=== PATIENT | female | born 1995 | race Caucasian/White ===

== ENCOUNTER 2020-11-16 18:05 | Inpatient (IN) | payer MEDICARE ==
[~2020-11-16] VITALS: Ht 160 cm; Wt 108.9 kg
[2020-11-16] MEDS ORDERED: IV NS 0.9% 1,000 ML BAG IV ONE (18:30)
[2020-11-16 18:31] LABS: BASOPHILS % (AUTO) 0.5 % (0.0-2.0); EOSINOPHILS % (AUTO) 1.1 % (0.0-6.0); HEMATOCRIT 47 % (33-45); HEMOGLOBIN 15.3 g/dL (11.5-14.8); LYMPHOCYTES # (AUTO) 2.3 /CMM (0.8-4.8); LYMPHOCYTES % (AUTO) 26.4 % (20.0-44.0); MEAN CORPUSCULAR HGB CONC 33 g/dl (31.0-36.0); MEAN CORPUSCULAR VOLUME 96 fL (82-100); MONOCYTES # (AUTO) 0.6 /CMM (0.1-1.30); MONOCYTES % (AUTO) 6.7 % (2.0-12.0); NEUTROPHILS # (AUTO) 5.8 /CMM (1.8-8.9); NEUTROPHILS % (AUTO) 65.3 % (43.0-81.0); PLATELET COUNT (AUTO) 444 /CMM (150-450); RED BLOOD CELL COUNT(AUTO) 4.87 MIL/uL (4.0-5.2); WHITE BLOOD COUNT (AUTO) 8.8 K/uL (4.3-11.0)
[2020-11-16 18:34] LABS: BILIRUBIN,URINE Negative (NEGATIVE); COLOR,URINE YELLOW (YELLOW); LEUKOCYTE ESTERASE ,URINE Negative (NEGATIVE); NITRITE, URINE Negative (NEGATIVE); PROTEIN,URINE Negative (NEGATIVE); UGLUCOSE >=1000 mg/dL (NEGATIVE); UROBILINOGEN,URINE 0.2 EU/dL (0.2)
[2020-11-16 18:40] LABS: BACTERIA,URINE Rare /HPF (None Seen); RBC,URINE 0-2 /HPF (0-2); SQUAMOUS EPITHELIAL CELL,UR Few /HPF (None Seen); WBC,URINE 0-2 /HPF (0-3)
[2020-11-16 18:45] LABS: CALCIUM, SERUM 8.7 mg/dL (8.5-10.1); POTASSIUM 4.7 mmol/L (3.5-5.1)
--- NOTE | 2020-11-16 18:47 | NUR ---
BIBS WITH TO ER BED 7. AAOX4. NOT IN RESP DISTRESS. BREATHING EVEN AND UNLABORED. AMBULATORY. CAME IN FOR ELEVATED BS. PER PT, SHE RAN OUT OF INSULIN AND WILL BE REFILL TOMORROW. HER BS ON HER GLUCOMETER READS "HIGH". UPON ASSESSING PT, ACCUCHECK READ "HI" WHICH IS ABOVE 600. WAS AT THE BEDSIDE FOR EVAL. ORDERS RECEIVED, NOTED AND CARRIED OUT. OV LINE ESTBALISHED ON L AC 20G, BLOOD DRAWN AND SENT TO LAB. CAMILA COLLECTED AND SENT TO LAB
[2020-11-16] MEDS ORDERED: LEVO75CA2 PO (18:58)
[2020-11-16] MEDS ORDERED: INSU100V11 SQ (18:58)
[2020-11-16] MEDS ORDERED: ALBU8.5H8 IH (18:58)
[2020-11-16] MEDS ORDERED: LAMO25TA10 PO (18:58)
[2020-11-16] MEDS ORDERED: ERGO500014 PO (18:58)
[2020-11-16] MEDS ORDERED: PANT40TA49 PO (18:58)
[2020-11-16] MEDS ORDERED: SERT-438 PO (18:58)
[2020-11-16] MEDS ORDERED: INSULIN REGULAR, HUMAN 100 UNIT in IV NS 0.9% 99 ML IV PRN (19:30)
[2020-11-16] MEDS ORDERED: IV PREMIX NS +20MEQ KCL 1,000 L IV PRN (19:30)
[2020-11-16] MEDS ORDERED: INSULIN REGULAR, HUMAN 100 UNIT/ML 10 ML VIAL ONE (20:23)
[2020-11-16] MEDS ORDERED: IV PREMIX NS +20MEQ KCL 1 L IV ONE (20:23)
[2020-11-16 20:27] LABS: CALCIUM, SERUM 8.3 mg/dL (8.5-10.1); PHOSPHORUS 3.4 mg/dL (2.5-4.9); POTASSIUM 4.4 mmol/L (3.5-5.1)
[2020-11-16 20:52] LABS: ABG BASE EXCESS -8.2 mmol/L; ABG OXYGEN SATURATION 95.8 % (92.0-98.5); ABG PCO2 32.6 mmHg (35.0-45.0); ABG PH 7.324 (7.350-7.450); ABG PO2 86.9 mmHg (75.0-100.0); AaDO2 23.8 mmHg; COHb 2.2 % (0.5-1.5); MetHb 0.3 % (0.0-1.5); O2Hb 93.4 % (94.0-97.0); SITE, ABG Left Radial; VENT MODE, BG ROOM AIR 21%
--- NOTE | 2020-11-16 21:37 | NUR ---
PAGED FOR PANEL CALL, JUDY MARTE WILL CALL BACK.
--- NOTE | 2020-11-16 21:50 | NUR ---
DR. ONTIVEROS SPEAKING WITH JUDY MARET REGARDING ADMISSION
[2020-11-16 22:07] LABS: CALCIUM, SERUM 8.3 mg/dL (8.5-10.1); PHOSPHORUS 2.6 mg/dL (2.5-4.9); POTASSIUM 3.9 mmol/L (3.5-5.1)
--- NOTE | 2020-11-16 22:33 | NUR ---
bs 449
--- NOTE | 2020-11-16 23:42 | NUR ---
REPORT GIVEN TO NATHAN MOHAN FOR PATRICIA
[2020-11-17] VITALS (19 sets, daily range): BP systolic 90–143; BP diastolic 36–77
[2020-11-17] MEDS ORDERED: MAG HYDROX/AL HYDROX/SIMETH 30 ML UDC PO PRN
[2020-11-17] MEDS ORDERED: ACETAMINOPHEN 325 MG TABLET PO PRN
[2020-11-17] MEDS ORDERED: ONDANSETRON HCL/PF 4 MG/2 ML VIAL IVP PRN
[2020-11-17] MEDS ORDERED: MAGNESIUM HYDROXIDE 30 ML UDC PO PRN
[2020-11-17] MEDS ORDERED: ALBUTEROL FS 2.5 MG/3 ML VIAL.NEB NEB PRN
[2020-11-17] MEDS ORDERED: HYDROCODONE/APAP 5/325MG TABLET PO PRN
[2020-11-17] MEDS ORDERED: INSULIN REGULAR, HUMAN 100 UNIT in IV NS 0.9% 99 ML IV PRN (00:30)
[2020-11-17 00:35] LABS: CALCIUM, SERUM 8.5 mg/dL (8.5-10.1); CREATININE 0.7 mg/dL (0.6-1.3); MAGNESIUM 1.9 mg/dL (1.8-2.4); PHOSPHORUS 2.9 mg/dL (2.5-4.9); POTASSIUM 3.9 mmol/L (3.5-5.1)
--- NOTE | 2020-11-17 00:35 | NUR ---
PT TRANSFERRED PER ACLS PROTOCOL
--- NOTE | 2020-11-17 01:00 | NUR ---
FRONT END ENGINEER INITIAL BLOOD GLUCOSE LEVEL 246 TITRATED INSULIN DRIP TO 1 UNIT/HR PER DKA PROTOCOL ALGORITHM #1.
[2020-11-17] MEDS: BLOOD SUGAR DIAGNOSTIC 1 EACH STRIP IN SCH ×10 (01:01→10:14)
[2020-11-17] MEDS ORDERED: IV PREMIX D5 1/2NS + KCL 1,000 ML IV ONE (01:20)
[2020-11-17] MEDS ORDERED: Potassium Chloride 20 MEQ in IV D5/0.45 NACL 1,000 ML IV SCH (01:30)
[2020-11-17 04:46] LABS: CALCIUM, SERUM 8.3 mg/dL (8.5-10.1); CREATININE 0.6 mg/dL (0.6-1.3); POTASSIUM 4.1 mmol/L (3.5-5.1)
[2020-11-17 04:48] LABS: CHOLESTEROL 139 mg/dL (<200); HDL CHOLESTEROL 37 mg/dL (40-60); LDL 86 mg/dL (0-99); TRIGLYCERIDES 158 mg/dL (30-150)
--- NOTE | 2020-11-17 07:15 | NUR ---
RESEARCH AND EVALUATION MANAGER NOTES RECEIVED PATIENT IN BED RESTING COMFORTABLY IN MODERATE HIGH BACK REST. A/OX4, ON RA SATING 99%, ON CLAY TEMPERER WITH CURRENT READING OF SR WITH HR OF 80'S. IV ACCESS ON RAC#20 AND LAC#20 WITH D5 1/2 NS +20 MEQ KCL RUNNING @100 ML/HR AND INSULIN DRIP RUNNING @ 0.5 PER DKA PROTOCOL ALGORITHM #1. SAFETY MEASURES IN PLACE, BED IN LOWEST LOCKED POSITION WITH SIDE RAILS UP X2. CALL LIGHT WITHIN REACH, WILL CONTINUE TO MONITOR.
[2020-11-17] MEDS: LEVOTHYROXINE SODIUM 75 MCG TABLET PO SCH (08:12)
[2020-11-17] MEDS: PANTOPRAZOLE 40 MG TABLET.DR PO SCH (08:12)
[2020-11-17] MEDS: LamoTRIgine 25 MG TABLET PO SCH (08:12)
[2020-11-17] MEDS: SERTRALINE HCL 50 MG TABLET PO SCH (08:12)
[2020-11-17] MEDS ORDERED: ERGOCALCIFEROL (VITAMIN D 2) 50,000 UNIT CAPSULE PO SCH ×2 (09:00)
[2020-11-17 09:14] LABS: CALCIUM, SERUM 8.6 mg/dL (8.5-10.1); CREATININE 0.6 mg/dL (0.6-1.3); POTASSIUM 4.6 mmol/L (3.5-5.1)
[2020-11-17] MEDS ORDERED: Potassium Chloride 20 MEQ in IV D5/0.45 NACL 1,000 ML IV PRN (09:30)
--- NOTE | 2020-11-17 10:21 | NUR ---
RUG CUTTER NOTES DR. GEE NOTIFIED REGARDING LATEST MD JAMEY ORDER TO DC INSULIN DRIP, DC IV FLUIDS AND START ON MODERATE SLIDING SCALE ACHS. WILL CONTINUE TO MONITOR.
[2020-11-17] MEDS ORDERED: DEXTROSE 50%-WATER 50 ML DISP.SYRIN IV PRN (10:30)
[2020-11-17] MEDS ORDERED: *INSULIN REGULAR(HUMULIN R)HUM 100 UNIT/ML VIAL SQ PRN (10:30)
[2020-11-17] MEDS: BLOOD SUGAR DIAGNOSTIC 1 EACH STRIP VI SCH ×3 (11:09→22:52)
[2020-11-17] MEDS: INSULIN REGULAR, HUMAN 100 UNIT/ML 3 ML VIAL SQ PRN ×3 (11:11→23:11)
[2020-11-17 12:29] LABS: CALCIUM, SERUM 8.3 mg/dL (8.5-10.1); CREATININE 0.7 mg/dL (0.6-1.3); POTASSIUM 4.6 mmol/L (3.5-5.1)
--- NOTE | 2020-11-17 18:12 | NUR ---
CARDIOVASCULAR SURGEON NOTES TRANSFERRED PATIENT VIA WHEELCHAIR, VSS, NO SIGNS OF DISTRESS, REPORT GIVEN TO AMARILIS RN AT BEDSIDE, ALL BELONGINGS AND MEDICATION WITH PATIENT.
--- NOTE | 2020-11-17 18:14 | NUR ---
MS RN OPENING NOTES RECEIVED PATIENT VIA GURNEY, DOWNGRADE FROM ICU. PATIENT IS A/OX4, PATIENT IS BREATHING EVENLY AND NONLABORED ON RA SATING 99%, BP 116/86, RR18, HR 83 TEMP 98.4. IV ACCESS ON RAC#20 AND LAC#20 PATENT AND INTACT. PATIENT IS AMBULATORY AND SKIN INTACT. PATIENT WAS ORIENTED TO THE ROOM AND SHOWN HOW TO USE THE CALL LIGHT. BELONGINGS ACCOUNTED FOR. SAFETY MEASURES IN PLACE, BED IN LOWEST LOCKED POSITION WITH SIDE RAILS UP X2. CALL LIGHT WITHIN REACH, WILL CONTINUE TO MONITOR.
--- NOTE | 2020-11-17 19:47 | NUR ---
MS RN OPENING NOTE PATIENT A/OX4; ABLE TO MAKE NEEDS KNOWN. ON ROOM AIR TOLERATING WELL WITH NO SOB. DENIES PAIN OR DISCOMFORT AT THIS TIME. RAC #20G & LAC#20 PATENT AND INTACT. DENIES N/V/D. SAFETY MEASURES IN PLACE: BED IN LOWEST LOCKED POSITION, SIDE RAILS UPX1, CALL LIGHT WITHIN EASY REACH. PATIENT IN STABLE CONDITION; WILL CONTINUE PLAN OF CARE.
--- NOTE | 2020-11-17 19:58 | NUR ---
MS RN NOTE - BLOOD SUGAR 1ST GLUCOSE CHECK- 426 2ND GLUCOSE CHECK - 416 ORDERED RANDOM BLOOD SUGAR CHECK STAT. PATIENT DENIES N/V/D; C/O FEELING THIRSTY. PATIENT A/OX4 AND STABLE AT THIS TIME. CAR STOWER NURSE AWARE.
--- NOTE | 2020-11-17 22:50 | NUR ---
MS RN NOTE SURVEY CAD TECHNICIAN FRANDY BLOOD FOR RANDOM BLOOD SUGAR CHECK. AWAITING RESULTS.
--- NOTE | 2020-11-17 23:17 | NUR ---
MS RN NOTE - BLOOD SUGAR VIBHA (LAB) REPORTED RANDOM BLOOD SUGAR IS 455. ADMINISTERED INSULIN 15 UNITS ORDERED PER SLIDING SCALE. NOTIFIED MIO MARTE NP.
--- NOTE | 2020-11-17 23:54 | NUR ---
MS RN NOTE MIO MARTE NP AWARE OF BS OF 455. NO NEW ORDERS.
[2020-11-18] MEDS: INSULIN REGULAR, HUMAN 100 UNIT/ML 3 ML VIAL SQ PRN ×2 (06:07→12:09)
--- NOTE | 2020-11-18 06:13 | NUR ---
MS RN CLOSING NOTES PATIENT A/OX4; ABLE TO MAKE NEEDS KNOWN. ON ROOM AIR TOLERATING WELL WITH NO SOB. DENIES PAIN OR DISCOMFORT AT THIS TIME. RAC #20G S/L PATENT AND INTACT. DENIES N/V/D. CGM NOTED TO LLQ. SAFETY MEASURES IN PLACE: BED IN LOWEST LOCKED POSITION, SIDE RAILS UPX1, CALL LIGHT WITHIN EASY REACH. PATIENT IN STABLE CONDITION; WILL ENDORSE PLAN OF CARE TO ONCOMING MORNING RN.
[2020-11-18] MEDS: BLOOD SUGAR DIAGNOSTIC 1 EACH STRIP VI SCH ×2 (06:30→12:07)
[2020-11-18] MEDS: LEVOTHYROXINE SODIUM 75 MCG TABLET PO SCH (06:38)
[2020-11-18] MEDS: PANTOPRAZOLE 40 MG TABLET.DR PO SCH (06:38)
[2020-11-18 08:00] VITALS: BP 119/64
[2020-11-18] MEDS: LamoTRIgine 25 MG TABLET PO SCH (08:34)
[2020-11-18] MEDS: SERTRALINE HCL 50 MG TABLET PO SCH (08:34)
--- NOTE | 2020-11-18 12:05 | NUR ---
MS RN NOTE PATIENT BLOOD SUGAR IS 524. 15 UNITS OF INSULIN GIVEN, REPORTED TO DR. GEE, PER MD CONTINUE TO MONITOR.
--- NOTE | 2020-11-18 12:32 | NUR ---
MS RN OPENING NOTE PATIENT IS IN NO ACUTE DISTRESS, PATIENT IS IN BE RESTING. PATIENT IS ON ROOM AIR TOLERATING WELL, NO SOB NOTED. SAFETY PRECAUTIONS ARE ON. BED IS LOCKED IN THE LOWEST POSITION, WITH SIDE RAILS UP, CALL LIGHT WITHIN THE REACH, WILL CONTINUE TO MONITOR CLOSELY.
--- NOTE | 2020-11-18 13:02 | NUR ---
MS INFORMATION SECURITY ENGINEER NOTE PATIENT IS IN NO ACUTE DISTRESS. PATIENT IS MEDICALLY STABLE TO BE DISCHARGED. DISCHARGE INSTRUCTIONS PROVIDED. PATIENT VERBALIZED UNDERSTANDING. PATIENTS NEEDS ADDRESSED DURING THE STAY. VALUABLES FORM WENT OVER AND SIGNED. PATIENTS IV LINE AND ID BAND REMOVED. PATIENT IS BEING PICKED UP BY HER . MD IS AWARE OF DISCHARGE.
[2020-11-18] MEDS ORDERED: IV PREMIX NS +20MEQ KCL 20 MEQ/L BAG IV ONE (20:00)
== END 2020-11-18 13:15 | disposition home or self-care (01) | DRG 951 ==
LOC: ER 18:05 → ICU 23:42 → MED 11-17 18:22
PROVIDERS: ADMIT Nurse Practitioner Family; ATTEND Internal Medicine
DX: T38.3X6A Underdosing of insulin and oral hypoglycemic [antidiabetic] drugs, initial encounter (principal); E10.10 Type 1 diabetes mellitus with ketoacidosis without coma; E87.1 Hypo-osmolality and hyponatremia; F84.5 Asperger's syndrome; Z79.4 Long term (current) use of insulin; F17.210 Nicotine dependence, cigarettes, uncomplicated; F42.9 Obsessive-compulsive disorder, unspecified; F41.9 Anxiety disorder, unspecified; F32.9 Major depressive disorder, single episode, unspecified; F90.9 Attention-deficit hyperactivity disorder, unspecified type; Z88.4 Allergy status to anesthetic agent; Z88.8 Allergy status to other drugs, medicaments and biological substances; Z79.51 Long term (current) use of inhaled steroids; Z79.899 Other long term (current) drug therapy; Z96.41 Presence of insulin pump (external) (internal); Y92.89 Other specified places as the place of occurrence of the external cause
CPT/HCPCS: 36415; 36600; 80048-TC; 80061-TC; 81001; 82945-TC; 82962-TC; 83735-TC; 84100-TC; 84703-TC; 85025-TC; 87081-TC; C9803; G0378; J1815; J3480; J3490; J7030